=== PATIENT | male | born 1980 | race Hispanic/Latino ===

== ENCOUNTER 2018-04-26 12:13 | Observation (INO) | payer OTHER ==
[~2018-04-26] VITALS: Ht 165.1 cm; Wt 155.4 kg
[2018-04-26] MEDS ORDERED: SODIUM CHLORIDE 0.9% 1000ML 1,000 ML IV STA (12:16)
[2018-04-26] MEDS ORDERED: SODIUM CHLORIDE 0.9% 1000ML 1,000 ML IV SCH (12:30)
[2018-04-26] MEDS ORDERED: ACETAMINOPHEN 325 MG TAB PO ONE ×2 (12:30→12:45)
[2018-04-26] MEDS ORDERED: CEFTRIAXONE SOD 1 GM VIAL IM ONE (12:30)
[2018-04-26 12:36] LABS: BILIRUBIN,URINE 2+ (NEGATIVE); CLARITY,URINE TURBID (CLEAR); COLOR,URINE ORANGE (YELLOW); KETONES,URINE TRACE (NEGATIVE); LEUKOCYTE ESTERASE ,URINE 2+ (NEGATIVE); NITRITE,URINE POSITIVE (NEGATIVE); PROTEIN,URINE DIPSTICK 3+ (NEGATIVE); URINE UROBILINOGEN 4 mg/dL (0.2 - 1)
[2018-04-26 12:41] LABS: BACTERIA,URINE FEW /HPF; EPITHELIAL CELLS,URINE FEW /LPF; RBC,URINE >50 /HPF (0-5); WBC,URINE (MAN) 21-50 /HPF (0-5)
[2018-04-26 12:55] LABS: BASOPHILS % 0.2 % (0.0-1.0); HEMATOCRIT 41.2 % (38.2-49.6); HEMOGLOBIN 14.7 g/dL (14.0-18.0); LYMPHOCYTES # (AUTO) 1.1 (1.0-3.2); LYMPHOCYTES % 6.8 % (18.0-39.1); MEAN CORPUSCULAR HEMOGLOBIN 29.9 pg (28-32); MEAN CORPUSCULAR HGB CONC 35.7 g/dL (31-35); MEAN CORPUSCULAR VOLUME 83.9 fL (81-99); MONOCYTES # (AUTO) 1.3 (0.2-0.8); MONOCYTES % 8.1 % (4.4-11.3); NEUTROPHILS # (AUTO) 13.5 (2.1-6.9); NEUTROPHILS % 83.4 % (38.7-80.0); PLATELET COUNT 193 x10e3/uL (140-360); RED BLOOD COUNT 4.91 x10e6/uL (4.3-5.7); RED CELL DISTRIBUTION WIDTH 13.9 % (11.7-14.4)
[2018-04-26 13:02] LABS: INR 1.14; PROTHROMBIN TIME 13.7 seconds (11.9-14.5)
[2018-04-26 13:03] LABS: PARTIAL THROMBOPLASTIN TIME 30.4 seconds (23.8-35.5)
[2018-04-26 13:13] LABS: ALANINE AMINOTRANSFERASE 42 IU/L (0-55); ALBUMIN 3.6 g/dL (3.5-5.0); ALBUMIN/GLOBULIN RATIO 0.9 (0.8-2.0); ALKALINE PHOSPHATASE 76 IU/L (40-150); AMYLASE 46 U/L (25-125); ANION GAP 15.4 mmol/L (8-16); BLOOD UREA NITROGEN 13 mg/dL (7-26); BUN/CREATININE RATIO 13 (6-25); CALCIUM 9.3 mg/dL (8.4-10.2); CARBON DIOXIDE 23 mmol/L (22-29); CHLORIDE 97 mmol/L (98-107); CREATININE, SERUM 1.01 mg/dL (0.72-1.25); EST GLOMERULAR FILTRATION RATE > 60 ML/MIN (60-); GLUCOSE 178 mg/dL (74-118); LIPASE 14 U/L (8-78); MAGNESIUM 1.6 MG/DL (1.3-2.1); POTASSIUM 3.4 mmol/L (3.5-5.1); SODIUM 132 mmol/L (136-145)
[2018-04-26] MEDS ORDERED: SODIUM CHLORIDE 0.9% 50ML 50 ML ONE (13:39)
[2018-04-26] MEDS ORDERED: IOPAMIDOL 370 MG/ML 200 ML INFUS..BTL INJ ONE (13:39)
--- NOTE | 2018-04-26 15:12 | Diagnostic Imaging Report ---
EXAM: CT Abdomen and Pelvis WITH contrast INDICATION: \S\fever, decreased Urine production, concern for pyelonephrit \[id number] \S\[id number] COMPARISON: None. TECHNIQUE: Abdomen and pelvis were scanned utilizing a multidetector helical scanner from the lung base to the pubic symphysis after administration of IV contrast. Coronal and sagittal reformations were obtained. Routine protocol was performed. Scan was performed when during portal venous phase. IV CONTRAST: 100 mL of Isovue-370 ORAL CONTRAST: Water COMPLICATIONS: None RADIATION DOSE: Total DLP: 1469.32 mGy*cm Estimated effective dose: (DLP x 0.015 x size factor) mSv CTDIvol has been reviewed. It is below the limits set by the Radiation Protocol Committee (RPC). FINDINGS: LINES and TUBES: None. LOWER THORAX: Unremarkable HEPATOBILIARY: Diffuse hepatic steatosis. No focal hepatic lesions. No biliary ductal dilation. GALLBLADDER: No radio-opaque stones or sludge. No wall thickening. SPLEEN: No splenomegaly. PANCREAS: No focal masses or ductal dilatation. ADRENALS: No adrenal nodules KIDNEYS/URETERS: Kidneys enhance symmetrically. No hydronephrosis. No cystic or solid mass lesions. No stones. GI TRACT: No abnormal distention, wall thickening, or evidence of bowel obstruction. There are diverticula within the colon without evidence of diverticulitis. Appendix is normal. PELVIC ORGANS/BLADDER: Bladder wall thickening and perivesical fat stranding. LYMPH NODES: No lymphadenopathy. VESSELS: Unremarkable. PERITONEUM / RETROPERITONEUM: No free air or fluid. BONES: Degenerative changes of spine. Scattered bone islands are seen in pelvic bones. SOFT TISSUES: Small fat-containing umbilical hernia. IMPRESSION: 1. No CT evidence of pyelonephritis. 2. Bladder wall thickening and perivesical fat stranding, concerning for cystitis. 3. Hepatic steatosis. Signed by: Dr. Jovanni Cordova MD on 04/26/2018 3:08 PM
[2018-04-26] MEDS ORDERED: ONDANSETRON HCL INJ 2 MG/ML VIAL IV PRN (16:30)
[2018-04-26] MEDS ORDERED: DEXTROSE 50% SYRINGE 50 ML IV PRN (16:30)
[2018-04-26] MEDS ORDERED: MORPHINE SULFATE 2 MG/ML SYR IV PRN (16:30)
[2018-04-26] MEDS: CEFTRIAXONE SOD 1 GM VIAL IV SCH (16:45)
[2018-04-26] MEDS ORDERED: IBUPROFEN 600 MG TAB PO PRN (17:45)
[2018-04-26] MEDS ORDERED: IBUPROFEN 600 MG TAB ONE (17:49)
[2018-04-26 18:20] VITALS: BP 140/68
[2018-04-26 20:00] VITALS: BP 131/65
[2018-04-26] MEDS: INSULIN REGULAR, HUMAN 100 UNIT/1 ML 3ML VIAL SQ SCH (20:50)
[2018-04-26] MEDS: ACETAMINOPHEN 325 MG TAB PO PRN (21:34)
[2018-04-26 23:59] VITALS: BP 96/54
[2018-04-27] VITALS (7 sets, daily range): BP systolic 110–135; BP diastolic 56–81
[2018-04-27] MEDS: SODIUM CHLORIDE 0.9% 1000ML 1,000 ML IV SCH ×3 (02:45→20:54)
[2018-04-27] MEDS: CEFTRIAXONE SOD 1 GM VIAL IV SCH ×2 (04:18→15:48)
[2018-04-27] MEDS: INSULIN REGULAR, HUMAN 100 UNIT/1 ML 3ML VIAL SQ SCH ×4 (07:30→20:35)
[2018-04-27] MEDS ORDERED: LISINOPRIL10 MG PO (11:04)
[2018-04-27] MEDS ORDERED: LOVASTATIN20 MG (11:04)
[2018-04-27] MEDS ORDERED: HYDROCHLOROTHIA25 MG (11:04)
--- NOTE | 2018-04-27 13:12 | Discharge Summary ---
PRIMARY CARE DOCTOR: Jorden Mathew MD, with [facility]. FINAL DIAGNOSIS: E. coli septicemia due to urinary tract infection. SECONDARY DIAGNOSES 1. Morbid obesity. 2. Hypertension. 3. Dyslipidemia. BOTTLE BLOWER: None. PROCEDURES/STUDIES PERFORMED: CT of the abdomen and pelvis. HISTORY: Per [facility] HOSPITAL COURSE: The patient responded well to iv Rocephin. I will go ahead and send him home on Cipro for 2 weeks to treat his septicemia, given the fact that Cipro has 100% bioavailability. His blood culture so far is showing Gram negative rods. I am almost 100% certain this is E. coli as well. I have updated his primary care doctor as well. CONDITION ON DISCHARGE: Improved. DISCHARGE MEDICATIONS: Please see medication reconciliation form. SEAN TINEO M.D. Job#: [id number] cc: JORDEN MATHEW MD MTD
[2018-04-27] MEDS ORDERED: MORPHINE SULFATE INJ 4 MG/ML INJ IV PRN (16:00)
[2018-04-27] MEDS: ACETAMINOPHEN 325 MG TAB PO PRN (16:33)
[2018-04-27] MEDS ORDERED: SIMVASTATIN 20 MG TAB PO SCH (21:00)
[2018-04-28] VITALS: BP 131/60
[2018-04-28 04:00] VITALS: BP 131/60
[2018-04-28] MEDS: CEFTRIAXONE SOD 1 GM VIAL IV SCH (04:39)
[2018-04-28 05:42] LABS: BASOPHILS % 0.3 % (0.0-1.0); EOSINOPHILS # (AUTO) 0.1 (0.0-0.4); EOSINOPHILS % 0.7 % (0.0-6.0); HEMATOCRIT 39.9 % (38.2-49.6); HEMOGLOBIN 13.8 g/dL (14.0-18.0); LYMPHOCYTES # (AUTO) 1.7 (1.0-3.2); MEAN CORPUSCULAR HEMOGLOBIN 29.9 pg (28-32); MEAN CORPUSCULAR HGB CONC 34.6 g/dL (31-35); MEAN CORPUSCULAR VOLUME 86.4 fL (81-99); MONOCYTES # (AUTO) 1.6 (0.2-0.8); MONOCYTES % 14.3 % (4.4-11.3); NEUTROPHILS # (AUTO) 7.5 (2.1-6.9); PLATELET COUNT 151 x10e3/uL (140-360); RED BLOOD COUNT 4.62 x10e6/uL (4.3-5.7); RED CELL DISTRIBUTION WIDTH 14.2 % (11.7-14.4)
[2018-04-28 06:13] LABS: ANION GAP 12.6 mmol/L (8-16); BLOOD UREA NITROGEN 11 mg/dL (7-26); BUN/CREATININE RATIO 14 (6-25); CARBON DIOXIDE 24 mmol/L (22-29); CHLORIDE 104 mmol/L (98-107); CREATININE, SERUM 0.77 mg/dL (0.72-1.25); EST GLOMERULAR FILTRATION RATE > 60 ML/MIN (60-); GLUCOSE 151 mg/dL (74-118); POTASSIUM 3.6 mmol/L (3.5-5.1); SODIUM 137 mmol/L (136-145)
[2018-04-28] MEDS: INSULIN REGULAR, HUMAN 100 UNIT/1 ML 3ML VIAL SQ SCH (07:30)
[2018-04-28 07:35] VITALS: BP 142/74
[2018-04-28] MEDS: SODIUM CHLORIDE 0.9% 1000ML 1,000 ML IV SCH (07:52)
[2018-04-28 08:00] VITALS: BP 142/74
[2018-04-28] MEDS ORDERED: LISINOPRIL 10 MG TAB PO SCH (09:00)
[2018-04-28 09:24] LABS: ANISOCYTOSIS SLIGHT; BAND NEUTROPHILS % (MANUAL) 1 %; EOSINOPHILS % (MANUAL) 2 % (0-7); LYMPHOCYTES % (MANUAL) 11 % (19-48); MONOCYTES % (MANUAL) 7 % (3.4-9.0); NEUTROPHILS % (MANUAL) 72 % (40-74); PLATELET ESTIMATE SLIGHTLY DECREASED
[2018-04-28 09:25] LABS: PLATELET MORPHOLOGY COMMENT NORMAL; RBC MORPHOLOGY COMMENT NORMAL
[2018-04-28] MEDS ORDERED: CIPRO500 MG PO (11:52)
[2018-04-28 12:00] VITALS: BP 128/62
[2018-04-29] MEDS ORDERED: LISINOPRIL 20 MG TAB PO SCH (09:00)
== END 2018-04-28 12:40 | disposition home or self-care (01) ==
LOC: ER 12:13 → ERHOLD 17:05 → IMCU 18:07 → MED/SURG3 04-27 20:46
PROVIDERS: ADMIT Internal Medicine; ATTEND Internal Medicine
DX: A41.51 Sepsis due to Escherichia coli [E. coli] (principal); N30.01 Acute cystitis with hematuria; E78.5 Hyperlipidemia, unspecified; E87.1 Hypo-osmolality and hyponatremia; E87.6 Hypokalemia; I10 Essential (primary) hypertension; Z83.3 Family history of diabetes mellitus; E66.01 Morbid (severe) obesity due to excess calories; Z68.43 Body mass index [BMI] 50.0-59.9, adult
CPT/HCPCS: 36415 ×2; 74177; 80048; 80053; 81001; 82150; 83036; 83605; 83690; 83735 ×2; 85025 ×2; 85610; 85730; 87040; 87071; 87086; 87186; 87205; 99284; G0378 ×3; J0696 ×3; J7030 ×3; Q9967